=== PATIENT | male | born 1970 | race Caucasian/White ===

== ENCOUNTER → 2016-07-10 | Outpatient (CLI) | payer OTHER | LOC: LAB 12:45 | PROVIDERS: ATTEND Family Medicine | DX: Z79.01 Long term (current) use of anticoagulants (principal) | CPT/HCPCS: 36415; 85610 ==

== ENCOUNTER → 2016-09-11 | Outpatient (CLI) | payer OTHER | LOC: LAB 11:53 | DX: Z79.01 Long term (current) use of anticoagulants (principal) | CPT/HCPCS: 36415; 85610 ==

== ENCOUNTER → 2016-10-04 | Outpatient (CLI) | payer OTHER ==
--- NOTE | 2016-10-04 13:32 | RAD ---
Examination: X-rays of the hips bilaterally. Clinical history: Chronic bilateral hip pain. Technique: AP and frog-leg lateral views of both hips were obtained. Comparison: None available. Findings: No acute fracture or dislocation is noted. Moderate osteoarthritic changes are seen associated with the hips bilaterally, asymmetrically more p rominent on the right side, with subchondral sclerosis and subchondral cyst formation also seen asso ciated with both femoral heads. There is a deformity of the right femoral head, which could be indic ative of associated osteonecrosis. An MRI of the hips is recommended for further evaluation. Calcific densities are seen overlying the pelvis, likely due to phleboliths. Surgical clips are seen in the inguinal regions bilaterally. Impression: 1. Moderate osteoarthritic changes are seen associated with the hips bilaterally, asymmetrically mor e prominent on the right side, with subchondral sclerosis and subchondral cyst formation also seen a ssociated with both femoral heads. There is a deformity of the right femoral head, which could be in dicative of associated osteonecrosis. An MRI of the hips is recommended for further evaluation. Reported By:
== END | disposition home or self-care (01) ==
LOC: RAD 12:59
PROVIDERS: ATTEND Family Medicine
DX: M25.551 Pain in right hip (principal)
CPT/HCPCS: 73521

== ENCOUNTER → 2017-02-05 | Outpatient (CLI) | payer OTHER | LOC: LAB 13:12 | PROVIDERS: ATTEND Family Medicine | DX: Z79.01 Long term (current) use of anticoagulants (principal) | CPT/HCPCS: 36415; 85610; 85730 ==

== ENCOUNTER → 2017-03-19 | Outpatient (CLI) | payer OTHER | LOC: LAB 13:27 | PROVIDERS: ATTEND Family Medicine | DX: Z79.01 Long term (current) use of anticoagulants (principal) | CPT/HCPCS: 36415; 85610; 85730 ==

== ENCOUNTER → 2017-04-30 | Outpatient (CLI) | payer OTHER | LOC: LAB 13:08 | PROVIDERS: ATTEND Family Medicine | DX: Z79.01 Long term (current) use of anticoagulants (principal) | CPT/HCPCS: 36415; 85610; 85730 ==

== ENCOUNTER → 2017-05-28 | Outpatient (CLI) | payer OTHER | LOC: LAB 13:21 | PROVIDERS: ATTEND Family Medicine | DX: Z79.01 Long term (current) use of anticoagulants (principal) | CPT/HCPCS: 36415; 85610; 85730 ==